=== PATIENT | female | born 1995 | race Caucasian/White ===

== ENCOUNTER 2020-06-08 08:25 | Emergency (ER) | payer OTHER ==
[2020-06-08 08:46] VITALS: BP 131/83
[2020-06-08] MEDS ORDERED: IBUPROFEN 600 MG TABLET PO STA (08:46)
[2020-06-08] MEDS ORDERED: ONDANSETRON ODT 4 MG TABLET TL STA (08:46)
[2020-06-08 08:58] LABS: BILIRUBIN,URINE NEGATIVE (NEGATIVE); GLUCOSE, URINE (UA) NEGATIVE (NEGATIVE); KETONES,URINE (UA) NEGATIVE (NEGATIVE); LEUKOCYTE ESTERASE, URINE LARGE (NEGATIVE); NITRITE,URINE NEGATIVE (NEGATIVE); OCCULT BLOOD,URINE TRACE-INTA (NEGATIVE); PROTEIN,URINE NEGATIVE (NEGATIVE); UROBILINOGEN,URINE 0.2 (NORMAL) E.U./dL (NORMAL)
[2020-06-08 09:00] LABS: BASOPHILS % (AUTO) 0.3 %; EOSINOPHILS % (AUTO) 0.3 %; HGB - HEMOGLOBIN 12.7 g/dL (12.0-16.0); LYMPHOCYTES # (AUTO) 1.8 10^3/uL (1.5-3.5); LYMPHOCYTES % (AUTO) 28.1 %; MEAN CORPUSCULAR HEMOGLOBIN 30.3 pg (27.0-31.0); MEAN CORPUSCULAR HGB CONC 34.3 g/dL (32.0-36.0); MEAN CORPUSCULAR VOLUME 88.3 fL (81.0-99.0); MONOCYTES # (AUTO) 0.4 10^3/uL (0.0-1.0); MONOCYTES % (AUTO) 6.6 %; NEUTROPHILS % (AUTO) 64.5 %; PLT - PLATELET COUNT 320 10^3/uL (130-450); RED BLOOD COUNT 4.19 10^6/uL (4.20-5.40); RED CELL DISTRIBUTION WIDTH 12.4 % (12.0-15.0); WHITE BLOOD COUNT 6.2 x10^3/uL (4.8-10.8)
[2020-06-08 09:02] LABS: CLARITY,URINE HAZY (CLEAR); HCG UR QUAL NEGATIVE
[2020-06-08 09:08] LABS: CALCIUM 9.7 mg/dL (8.5-10.3); CREATININE 0.6 mg/dL (0.4-1.0); POTASSIUM 3.6 mmol/L (3.5-5.0)
[2020-06-08 09:15] LABS: BACTERIA,URINE Few /HPF (None Seen); RBC,URINE 0-5 /HPF (0-5); SQUAMOUS EPITHELIAL CELL,UR FEW Squamous (<= Few); WBC,URINE >25 /HPF (0-5)
[2020-06-08] MEDS ORDERED: PHENAZOPYRIDINE 100 MG TABLET PO STA (09:31)
[2020-06-08] MEDS ORDERED: SULFAMETH/TRIMETH DS 800/160 MG TABLET PO STA (09:31)
--- NOTE | 2020-06-08 09:37 | ED Physician Documentation ---
PD HPI FEMALE - Stated complaint Stated Complaint: FEMALE - Chief complaint Chief Complaint: Abd Pain - History obtained from History obtained from: Patient - History of Present Illness Timing - onset: How many days ago (2) Timing - duration: Days (2) Timing - details: Gradual onset, Still present Associated symptoms: Dysuria, Urinary frequency. No: Fever, Vaginal bleeding, Vaginal discharge, Genital sore/lesion Contributing factors: Sexually active, Other (nexplanon). No: Exposed to STD Similar symptoms before: Diagnosis (UTIs in the past.) Recently seen: Clinic (seen about 9 days ago for uti symptoms and Rx Macrobid for 5 days. finished thos few days ago and having symptoms back again. Denies vaginal discharge now, did have some the week ago.) Review of Systems Constitutional: denies: Fever, Chills Nose: denies: Rhinorrhea / runny nose, Congestion Throat: denies: Sore throat Respiratory: denies: Cough GI: reports: Abdominal Pain (lower abd cramping intermittent. and with dysuria with urination. Denies tenderness/rash/pain with wiping/external.), Nausea, Diarrhea (loose stools the past 2 days, not diarrhea per se.). denies: Vomiting : reports: Dysuria, Frequency, Discharge (states mild discharge a week ago, not currently.). 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 - Past Surgical History Past Surgical History: No - Present Medications Home Medications: Ambulatory Orders Medication Instructions Recorded Confirmed Ibuprofen [Motrin] 600 mg PO TID PRN #20 tab 06/08/20 Ondansetron Odt [Zofran] 4 mg TL Q6H PRN #10 tablet 06/08/20 Phenazopyridine HCl [Pyridium] 100 mg PO TID PRN #15 tablet 06/08/20 Sulfamethox/Trimeth 800/160 1 each PO BID #14 tablet 06/08/20 [Bactrim Ds 800/160] - Allergies Allergies/Adverse Reactions: Allergies Allergy/AdvReac Type Severity Reaction Status Date / Time No Known Drug Allergies Allergy Verified 06/08/20 08:46 - Social History Does the pt smoke?: No Smoking Status: Never smoker Does the pt drink ETOH?: No Does the pt have substance abuse?: No - Immunizations Immunizations are current?: Yes - POLST Patient has POLST: No PD ED PE NORMAL - Vitals Vital signs reviewed: Yes - General General: Alert and oriented X 3, No acute distress, Well developed/nourished - Cardiac Cardiac: RRR, No murmur - Respiratory Respiratory: Clear bilaterally - Abdomen Abdomen: Normal bowel sounds, Soft, Non distended, No organomegaly, Other (mild tender suprapubic area.) - Female Female : Deferred (will have her do self-swab for BV. ) - Back Back: No CVA TTP - Derm Derm: Normal color, No rash Results - Vitals Vitals: Vital Signs - 24 hr 06/08/20 06/08/20 08:34 08:56 Temperature 36.7 C Heart Rate 94 85 Respiratory 16 16 Rate Blood Pressure 131/83 H 131/83 H O2 Saturation 99 100 Oxygen O2 Source Room air - Labs Labs: Laboratory Tests 06/08/20 06/08/20 06/08/20 08:51 08:55 08:55 WBC 6.2 RBC 4.19 L Hgb 12.7 Hct 37.0 MCV 88.3 MCH 30.3 MCHC 34.3 RDW 12.4 Plt Count 320 MPV 10.0 Neut # (Auto) 4.0 Lymph # (Auto) 1.8 Dawes # (Auto) 0.4 Eos # (Auto) 0.0 Baso # (Auto) 0.0 Absolute Nucleated RBC 0.00 Nucleated RBC % 0.0 Sodium 141 Potassium 3.6 Chloride 104 Carbon Dioxide 28 Anion Gap 9.0 BUN 10 Creatinine 0.6 Estimated GFR (MDRD) 125 Glucose 98 Calcium 9.7 Urine Color LIGHT YELLOW Urine Clarity HAZY Urine pH 7.0 Ur Specific [place] <=1.005 Urine Protein NEGATIVE Urine Glucose (UA) NEGATIVE Urine Ketones NEGATIVE Urine Occult Blood TRACE-INTA Urine Nitrite NEGATIVE Urine Bilirubin NEGATIVE Urine Urobilinogen 0.2 (NORMAL) Ur Leukocyte Esterase LARGE H Urine RBC 0-5 Urine WBC >25 H Ur Squamous Epith Cells FEW Squamous Urine Bacteria Few Ur Microscopic Review INDICATED Urine Culture Comments INDICATED Urine HCG, Qual NEGATIVE PD MEDICAL DECISION MAKING - ED course Complexity details: considered differential (UA seems positive for UTI. She had taken Macrobid for this with incomplete clearing. Will go with other med. ), d/w patient Departure - Departure Disposition: 01 Home, Self Care Clinical Impression: Dysuria, Recurrent UTI (urinary tract infection) Condition: Stable Record reviewed to determine appropriate education?: Yes Instructions: ED UTI Cystitis Female Follow-Up: [facility] [Provider Group] Prescriptions: Sulfamethox/Trimeth 800/160 [Bactrim Ds 800/160] 1 each PO BID #14 tablet Ibuprofen [Motrin] 600 mg PO TID PRN #20 tab PRN Reason: Pain Phenazopyridine HCl [Pyridium] 100 mg PO TID PRN #15 tablet PRN Reason: Abdominal Pain Ondansetron Odt [Zofran] 4 mg TL Q6H PRN #10 tablet PRN Reason: Nausea / Vomiting Comments: Rest today off work. Stay well-hydrated. Use Bactrim antibiotic twice daily for a week. For symptoms you can use phenazopyridine to help with urinary discomfort. Ondansetron if needed for nausea. Add some ibuprofen 2-3 times a day for discomfort as well. Take it with food. I would anticipate improvement over the next day or 2 and resolution by a 3 to 4 days. Recheck if not improved in that timeframe or worsening symptoms. Your urine culture and vaginal culture will result in the next 1-2 days and we will call you if we need to modify or change medications based on those. Forms: Activity restrictions Discharge Date/Time: 06/08/20 09:45
[2020-06-08 11:34] LABS: BACTERIAL VAGINOSIS DNA NEGATIVE (NEGATIVE); CANDIDA GLABRATA DNA NEGATIVE (NEGATIVE); CANDIDA GROUP DNA NEGATIVE (NEGATIVE); CANDIDA KRUSEI DNA NEGATIVE (NEGATIVE); TRICHOMONAS VAGINALIS DNA NEGATIVE (NEGATIVE)
== END 2020-06-08 09:45 | disposition home or self-care (01) ==
LOC: ED 08:25
DX: N39.0 Urinary tract infection, site not specified (principal)
CPT/HCPCS: 36415; 80048; 81001; 81025; 85025; 87086; 87481; 87661; 87801; 99284; A9270; Q0162; 81003

== ENCOUNTER 2020-10-12 13:25 | Emergency (ER) | payer OTHER ==
[2020-10-12 13:57] LABS: BILIRUBIN,URINE NEGATIVE (NEGATIVE); GLUCOSE, URINE (UA) 100 mg/dL (NEGATIVE); KETONES,URINE (UA) NEGATIVE (NEGATIVE); OCCULT BLOOD,URINE NEGATIVE (NEGATIVE); PROTEIN,URINE TRACE mg/dL (NEGATIVE); UROBILINOGEN,URINE 1 (NORMAL) E.U./dL (NORMAL)
[2020-10-12 14:05] LABS: CLARITY,URINE CLEAR (CLEAR); HCG UR QUAL NEGATIVE
[2020-10-12 14:13] LABS: BACTERIA,URINE Rare /HPF (None Seen); RBC,URINE None Seen /HPF (0-5); SQUAMOUS EPITHELIAL CELL,UR FEW Squamous (<= Few)
[2020-10-12] MEDS ORDERED: SULFAMETH/TRIMETH DS 800/160 MG TABLET PO STA (14:47)
--- NOTE | 2020-10-12 14:54 | ED Physician Documentation ---
History of Present Illness - Stated complaint Stated Complaint: FEMALE - Chief complaint Chief Complaint: UTI - History obtained from History obtained from: Patient - Additonal information Additional information: Patient comes emergency department chief complaint of dysuria that started today. She states she has had UTIs a number of times in the past and feels similar. She denies any nausea or vomiting. She had a feeling of chills but no measured fever. No other complaints at this time. No vaginal symptoms. No back pain that is new. Review of Systems Ten Systems: 10 systems reviewed and negative Constitutional: reports: Reviewed and negative Eyes: reports: Reviewed and negative Ears: reports: Reviewed and negative Nose: reports: Reviewed and negative Throat: reports: Reviewed and negative Cardiac: reports: Reviewed and negative Respiratory: reports: Reviewed and negative GI: reports: Abdominal Pain : reports: Dysuria Skin: reports: Reviewed and negative Musculoskeletal: reports: Reviewed and negative Neurologic: reports: Reviewed and negative Psychiatric: reports: Reviewed and negative Endocrine: reports: Reviewed and negative Immunocompromised: reports: Reviewed and negative PD PAST MEDICAL HISTORY - Past Medical History Past Medical History: Yes Cardiovascular: None Respiratory: None Neuro: None Endocrine/Autoimmune: None GI: None 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 : Chronic bladder infection HEENT: None Psych: None Musculoskeletal: None Derm: None - Past Surgical History Past Surgical History: No - Present Medications Home Medications: Ambulatory Orders Medication Instructions Recorded Confirmed Phenazopyridine HCl [Pyridium] 200 mg PO TID PRN #6 tablet 10/12/20 Sulfamethox/Trimeth 800/160 1 each PO BID #14 tablet 10/12/20 [Bactrim Ds 800/160] - Allergies Allergies/Adverse Reactions: Allergies Allergy/AdvReac Type Severity Reaction Status Date / Time No Known Drug Allergies Allergy Verified 10/12/20 13:37 - Social History Does the pt smoke?: No Smoking Status: Former smoker Does the pt drink ETOH?: No Does the pt have substance abuse?: No - Immunizations Immunizations are current?: Yes - POLST Patient has POLST: No PD ED PE NORMAL - Vitals Vital signs reviewed: Yes - General General: Alert and oriented X 3, No acute distress, Well developed/nourished - HEENT HEENT: Atraumatic, PERRL, EOMI, Moist mucous membranes - Neck Neck: Supple, no meningeal sign - Cardiac Cardiac: RRR, No murmur, Strong equal pulses - Respiratory Respiratory: No respiratory distress, Clear bilaterally - Abdomen Abdomen: Soft, Non distended, Other (Moderate diffuse tenderness across low abdomen, no rebound or guarding.) - Back Back: No CVA TTP - Derm Derm: Normal color, Warm and dry, No rash - Extremities Extremities: No deformity, No edema - Neuro Neuro: Alert and oriented X 3, supervisory aide 2-12 intact, Normal speech - Psych Psych: Normal mood, Normal affect Results - Vitals Vitals: Vital Signs - 24 hr 10/12/20 13:37 Temperature 36.4 C L Heart Rate 78 Respiratory 16 Rate Blood Pressure 108/64 O2 Saturation 98 Oxygen O2 Source Room air - Labs Labs: Laboratory Tests 10/12/20 13:45 Urine Color ORANGE Urine Clarity CLEAR Urine pH 6.0 Ur Specific [place] <=1.005 Urine Protein TRACE Urine Glucose (UA) 100 H Urine Ketones NEGATIVE Urine Occult Blood NEGATIVE Urine Nitrite Urine Bilirubin NEGATIVE Urine Urobilinogen 1 (NORMAL) Ur Leukocyte Esterase Urine RBC None Seen Urine WBC 11-25 H Ur Squamous Epith Cells FEW Squamous Urine Bacteria Rare Ur Microscopic Review INDICATED Urine Culture Comments NOT INDICATED Urine HCG, Qual NEGATIVE PD MEDICAL DECISION MAKING - ED course Complexity details: reviewed results, re-evaluated patient, considered differential, d/w patient ED course: Urinalysis was positive. Patient was treated with Bactrim here in the emergency department and given a prescription for the same. We have discussed home management of symptoms, and will use will indications for return. Departure - Departure Disposition: 01 Home, Self Care Clinical Impression: Urinary tract infection Qualifiers: Urinary tract infection type: acute cystitis Hematuria presence: without hematuria Qualified Code(s): N30.00 - Acute cystitis without hematuria Condition: Stable Instructions: ED UTI Cystitis Female Prescriptions: Sulfamethox/Trimeth 800/160 [Bactrim Ds 800/160] 1 each PO BID #14 tablet Phenazopyridine HCl [Pyridium] 200 mg PO TID PRN #6 tablet PRN Reason: dysuria
[2020-10-12 15:14] VITALS: BP 110/62
== END 2020-10-12 15:13 | disposition home or self-care (01) ==
LOC: ED 13:25
DX: N30.00 Acute cystitis without hematuria (principal); Z87.891 Personal history of nicotine dependence
CPT/HCPCS: 81001; 81025; 99283; 99284; A9270; 81003; 87086

== ENCOUNTER 2023-05-14 08:00 | Outpatient (CLI) | payer OTHER ==
[2023-05-14 16:21] LABS: BILIRUBIN,URINE NEGATIVE (NEGATIVE); GLUCOSE, URINE (UA) NEGATIVE (NEGATIVE); KETONES,URINE (UA) NEGATIVE (NEGATIVE); LEUKOCYTE ESTERASE, URINE NEGATIVE (NEGATIVE); NITRITE,URINE NEGATIVE (NEGATIVE); OCCULT BLOOD,URINE NEGATIVE (NEGATIVE); PH,URINE 6.5 PH (5.0-7.5); PROTEIN,URINE NEGATIVE (NEGATIVE); UROBILINOGEN,URINE 0.2 (NORMAL) E.U./dL (NORMAL)
[2023-05-14 16:26] LABS: CLARITY,URINE CLEAR (CLEAR)
[2023-05-14 16:37] LABS: BACTERIA,URINE None Seen /HPF (None Seen); RBC,URINE 0-5 /HPF (0-5); SQUAMOUS EPITHELIAL CELL,UR RARE Squamous (<= Few); WBC,URINE 0-3 /HPF (0-5)
== END 2023-05-14 23:59 | disposition home or self-care (01) ==
LOC: LAB.WC 08:00
PROVIDERS: ATTEND Nurse Practitioner
DX: Z34.00 Encounter for supervision of normal first pregnancy, unspecified trimester (principal)
CPT/HCPCS: 81001; 87086

== ENCOUNTER 2023-05-23 19:37 | Outpatient (CLI) | payer OTHER ==
--- NOTE | 2023-05-24 22:08 | Ultrasound Report ---
PROCEDURE: OB 1st Trimester w/TV INDICATIONS: POSITIVE TEST OUTSIDE/PRIOR DATING DATA: Last menstrual period (LMP): 03/31/2023. LMP-based estimated date of delivery (GERMAN): 01/05/2024. First dating scan (date and location): 05/23/2023. Estimated date of delivery (GERMAN) from first dating scan: 01/13/2024. TECHNIQUE: Real-time scanning was performed of the fetus and maternal pelvic organs, with image documentation. Endovaginal scanning was also performed to better visualize the fetus and maternal ovaries. COMPARISON: None. FINDINGS: Intrauterine gestational sac present. Embryo: [place]-rump length measuring 0.59 cm, gestational age 6 weeks 3 days. Heart rate: 116 bpm. Other: No perigestational fluid collection. A yolk sac is seen. Measurement variability in dating: +/- 4 weeks by LMP, +/- 7 days by mean sac diameter (use before 6 weeks gestation if crown-rump length not able to be measured), +/- 5 days by crown-rump length (6-12 weeks gestation). Maternal organs: Ovaries appear within normal limits. Right corpus luteum. IMPRESSION: 1. [place] living intrauterine at 6 weeks 3 days based on today's crown-rump length. 2. No perigestational hemorrhage. Reviewed by: Anthony Herndon MD on 05/24/2023 10:07 PM PDT Approved by: Anthony Herndon MD on 05/24/2023 10:07 PM PDT Station ID: [id number]
== END 2023-05-23 19:38 | disposition home or self-care (01) ==
LOC: DI 19:37
PROVIDERS: ATTEND Nurse Practitioner
DX: Z34.01 Encounter for supervision of normal first pregnancy, first trimester (principal)

== ENCOUNTER 2023-06-06 12:48 | Outpatient (CLI) | payer OTHER ==
[2023-06-06 17:49] LABS: BASOPHILS % (AUTO) 0.2 %; EOSINOPHILS # (AUTO) 0.1 10^3/uL (0.0-0.7); EOSINOPHILS % (AUTO) 0.8 %; HCT - HEMATOCRIT 34.4 % (37.0-47.0); HGB - HEMOGLOBIN 11.3 g/dL (12.0-16.0); LYMPHOCYTES # (AUTO) 2.5 10^3/uL (1.5-3.5); LYMPHOCYTES % (AUTO) 26.4 %; MEAN CORPUSCULAR HEMOGLOBIN 29.4 pg (27.0-31.0); MEAN CORPUSCULAR HGB CONC 32.8 g/dL (32.0-36.0); MEAN CORPUSCULAR VOLUME 89.4 fL (81.0-99.0); MEAN PLATELET VOLUME 10.6 fL (7.9-10.8); MONOCYTES # (AUTO) 0.6 10^3/uL (0.0-1.0); MONOCYTES % (AUTO) 6.7 %; NEUTROPHILS # (AUTO) 6.1 10^3/uL (1.5-6.6); NEUTROPHILS % (AUTO) 65.6 %; PLT - PLATELET COUNT 331 10^3/uL (130-450); RED BLOOD COUNT 3.85 10^6/uL (4.20-5.40); RED CELL DISTRIBUTION WIDTH 12.4 % (12.0-15.0); WHITE BLOOD COUNT 9.3 x10^3/uL (4.8-10.8)
[2023-06-08 04:09] LABS: HIV SCREEN 4TH GENERATION Non Reactive (Non Reactive)
[2023-06-08 05:12] LABS: RPR Non Reactive (Non Reactive)
[2023-06-08 07:09] LABS: HBsAG SCREEN Negative (Negative)
[2023-06-08 10:08] LABS: VARICELLA-ZOSTER AB IGG 556 index (Immune >165)
[2023-06-10 23:08] LABS: HCV AB Non Reactive (Non Reactive)
== END 2023-06-06 12:49 | disposition home or self-care (01) ==
LOC: LAB.N 12:48
PROVIDERS: ATTEND Obstetrics & Gynecology
DX: Z34.00 Encounter for supervision of normal first pregnancy, unspecified trimester (principal); Z36.89 Encounter for other specified antenatal screening
CPT/HCPCS: 36415; 85025; 86592; 86762; 86787; 86803; 86850; 86900; 86901; 87340; 87389

== ENCOUNTER 2023-07-15 14:01 | Outpatient (CLI) | payer OTHER | END 2023-07-15 14:02 | disposition home or self-care (01) | LOC: LAB 14:01 | PROVIDERS: ATTEND Obstetrics & Gynecology | DX: Z34.00 Encounter for supervision of normal first pregnancy, unspecified trimester (principal); Z36.0 Encounter for antenatal screening for chromosomal anomalies ==

== ENCOUNTER 2023-08-04 12:15 | Emergency (ER) | payer OTHER ==
[2023-08-04] MEDS: oxyCODONE 5 MG TABLET PO STA (12:36)
[2023-08-04] MEDS: AMOX/CLAV 875 MG/125 MG TABLET PO STA (12:37)
[2023-08-04] MEDS: LIDOCAINE 1%-EPI 1:100000 20 ML MDV SUBQ STA (12:37)
--- NOTE | 2023-08-04 12:39 | ED Physician Documentation ---
History of Present Illness - Stated complaint Stated Complaint: DOG BITE/16WKS+ - Chief complaint Chief Complaint: Trauma Ext - History obtained from History obtained from: Patient - History of Present Illness Timing: Today Pain level max: 6 Pain level now: 6 - Additonal information Additional information: 27-year-old female presents the emergency department stating that she was a bit by a dog today. Has lacerations to the bilateral forearms. Tetanus shot up-to-date. She states that she is approximately 16 weeks . She states that the dog was a neighbors dog. She states the attack was unprovoked. 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 : Chronic bladder infection HEENT: None Psych: None Musculoskeletal: None Derm: None - Past Surgical History Past Surgical History: No - Present Medications Home Medications: Ambulatory Orders Medication Instructions Recorded Confirmed Amox/Clav 875/125 [Augmentin] 1 tab PO Q12H #20 tablet 08/04/23 oxyCODONE [Roxicodone] 5 - 10 mg PO Q6H PRN #14 tablet 08/04/23 MDD 6 - Allergies Allergies/Adverse Reactions: Allergies Allergy/AdvReac Type Severity Reaction Status Date / Time No Known Drug Allergies Allergy Verified 08/04/23 12:32 - Social History Does the pt smoke?: No Smoking Status: Never smoker Does the pt drink ETOH?: No Does the pt have substance abuse?: No - Immunizations Immunizations are current?: Yes - POLST Patient has POLST: No PD ED PE NORMAL - Vitals Vital signs reviewed: Yes - General General: Alert and oriented X 3, No acute distress - HEENT HEENT: Atraumatic - Neck Neck: Supple, no meningeal sign - Cardiac Cardiac: RRR - Respiratory Respiratory: No respiratory distress, Clear bilaterally - Abdomen Abdomen: Soft, Non tender, Non distended - Derm Derm: Warm and dry - Extremities Extremities: Other - Neuro Neuro: Alert and oriented X 3 - Psych Psych: Normal mood, Normal affect - Free text exam Free text exam: Multiple lacerations to the bilateral forearms, there is a laceration just proximal to the distal right ulna on the dorsum of the arm that has a complete tendon laceration. Patient is neurovascularly intact, but has difficulty holding her right wrist in full extension and difficulty fully extending her right fifth digit. She has multiple smaller lacerations to the left forearm. Has abrasions to the left hand. Results - Vitals Vitals: Vital Signs - 24 hr 08/04/23 12:26 Temperature 35.9 C L Heart Rate 94 Respiratory 18 Rate Blood Pressure 113/69 O2 Saturation 100 Oxygen O2 Source Room air - Rads (name of study) R forearm xray Relevant Findings:: Final report received, See rad report L forearm xray Relevant Findings:: Final report received, See rad report Procedures - Laceration (location) R forearm proximal Length in cm: 4 Wound type: Linear, Into subcut fat, Clean Neurovascular status: Sensory intact, Motor intact, Vascular intact Anesthesia: Lidocaine 1% with epi Wound preparation: Irrigated copiously NS, Wound explored, To the base Skin layer closure: Nylon, Interrupted, Size #-0 - enter number (4) Other: Patient tolerated well, No complications, Neurovascular intact, Tetanus UTD R forearm proximal 2 Length in cm: 2 Wound type: Linear, Into subcut fat, Clean Neurovascular status: Sensory intact, Motor intact, Vascular intact Anesthesia: Lidocaine 1% Wound preparation: Irrigated copiously NS Skin layer closure: Nylon, Interrupted, Size #-0 - enter number (4) Other: Patient tolerated well, No complications, Neurovascular intact, Tetanus UTD R forearm proximal 3 Length in cm: 2 Wound type: Linear, Into subcut fat, Clean Neurovascular status: Sensory intact, Motor intact, Vascular intact Anesthesia: Lidocaine 1% with epi Wound preparation: Irrigated copiously NS, Wound explored, To the base Skin layer closure: Nylon, Interrupted, Size #-0 - enter number (4) Other: Patient tolerated well, No complications, Neurovascular intact, Tetanus UTD L forearm proximal 1 Length in cm: 2 Wound type: Linear, Into subcut fat, Clean Neurovascular status: Sensory intact, Motor intact, Vascular intact Anesthesia: Lidocaine 1% with epi Wound preparation: Irrigated copiously NS, Wound explored, To the base Skin layer closure: Nylon, Interrupted, Size #-0 - enter number (4) Other: Patient tolerated well, No complications, Neurovascular intact, Dressing applied, Tetanus UTD L forearm prox 2 Length in cm: 2 Wound type: Linear, Into subcut fat, Clean Neurovascular status: Sensory intact, Motor intact, Vascular intact Wound preparation: Irrigated copiously NS Skin layer closure: Nylon, Interrupted, Size #-0 - enter number (4) Other: Patient tolerated well, No complications, Neurovascular intact, Dressing applied, Tetanus UTD R forearm proximal 4 Length in cm: 3 Wound type: Linear, Into subcut fat, Clean Neurovascular status: Sensory intact, Motor intact, Vascular intact Anesthesia: Lidocaine 1% with epi Wound preparation: Irrigated copiously NS, Wound explored, To the base Skin layer closure: Nylon, Interrupted, Size #-0 - enter number (4) Other: Patient tolerated well, No complications, Neurovascular intact, Dressing applied, Tetanus UTD PD Medical Decision Making - ED course Complexity details: reviewed results, re-evaluated patient, considered differential, d/w patient, d/w solution consultant ED course: Lacerations were repaired in the emergency department. Tolerated well. On the laceration at the dorsum of the right forearm, proximal to the distal ulna there was an extensor tendon complete laceration. I consulted orthopedics, Dr. Acosta, who came and saw the patient. He attempted to find the other end of the tendon but was unsuccessful in doing so. Therefore he closed the skin and recommended outpatient follow-up with a hand surgeon. Patient was placed into a fiberglass splint to immobilize the area. Her tetanus shot is up-to-date. Will place on Augmentin for infection. I spoke with [facility] who will pass the patient's information to the triage nurse for a call on Saturday. The information was also given to the patient. Warnings of infection and instructions on wound care given at bedside. Also counseled on how to minimize scarring. Patient counseled regarding signs and symptoms for which I believe and urgent re-evaluation would be necessary. Patient with good understanding of and agreement to plan and is comfortable going home at this time This document was made in part using voice recognition software. While efforts are made to proofread this document, sound alike and grammatical errors may occur. Departure - Departure Disposition: 01 Home, Self Care Clinical Impression: Arm laceration involving tendon Dog bite Qualifiers: Encounter type: initial encounter Qualified Code(s): W54.0XXA - Bitten by dog, initial encounter Arm laceration Qualifiers: Encounter type: initial encounter Laterality: unspecified laterality Qualified Code(s): S41.119A - Laceration without foreign body of unspecified upper arm, initial encounter Condition: Good Instructions: ED Bite Dog, ED Laceration Ext Sutr Stap Tape, ED Laceration Tendon Follow-Up: OLIVIA CALDERON [Physician No Access] - Prescriptions: Amox/Clav 875/125 [Augmentin] 1 tab PO Q12H #20 tablet oxyCODONE [Roxicodone] 5 - 10 mg PO Q6H PRN #14 tablet MDD 6 PRN Reason: pain Comments: Your prescriptions were sent to [facility] in [place]. Please take all antibiotics until gone. Please monitor the wounds for any signs of infection including redness, swelling or drainage from the wound. As we discussed you do have an extensor tendon laceration that will need repair. I spoke with orthopedics at [facility] in [place], they have your name and phone number and should call you on Saturday for an appointment, if you do not hear from them by Saturday afternoon, please call their office for a follow-up appointment. The follow-up appointment should be this week. Your other sutures should be removed in approximately 10 days, this can be done at the [employer] [facility]. I am prescribing a short course of narcotic pain medication for you. These are potentially dangerous and addictive medications that should be used carefully. These medications may constipate you. Take an xwyf-[id number]-[id number] stool softener (docusate) twice daily with plenty of water while taking these medications. If you go 24 hours without a bowel movement, take isty-clc-rbjperm miralax, per package instructions. Do not drink or drive while taking these medications. If you received narcotic or sedating medications while in the emergency department, do not drive for 24 hours. Store this medication in a safe, secure place and out of reach of children. It is a violation of federal law to give or sell this medication to another person or to use in a manner other than prescribed. The ED will not refill narcotic prescriptions, including prescriptions lost or stolen. To dispose of unwanted medications: 1. [facility] at [address] in [place] has a medication drop box. They accept prescription medications (in pil l form) Saturday through Saturday 9:00 a.m. to 5:00 p.m. 2. The [facility] accepts prescription medications (in pill form only) for disposal year round. Call for more information. 3. Contact the [facility] for the next [facility] sponsored prescription drug collection event. , [phone], or [phone]; Forms: PCP List, Activity restrictions
--- NOTE | 2023-08-04 13:45 | XRAY Report ---
PROCEDURE: Forearm RT INDICATIONS: dog bite vs arm TECHNIQUE: 3 views of the forearm were acquired. COMPARISON: None. FINDINGS: Bones: No fractures or dislocations. No suspicious bony lesions. Soft tissues: No suspicious soft tissue calcifications or masses. Scant subcutaneous gas. No radiopa que foreign body. IMPRESSION: No acute bony abnormality. Scant subcutaneous gas from puncture. Reviewed by: Anthony Herndon MD on 08/04/2023 1:43 PM PDT Approved by: Anthony Herndon MD on 08/04/2023 1:43 PM PDT Station ID: [id number]
--- NOTE | 2023-08-04 13:48 | XRAY Report ---
PROCEDURE: Forearm LT INDICATIONS: dog bite TECHNIQUE: 2 views of the forearm were acquired. COMPARISON: Same day contralateral right forearm radiographs. FINDINGS: Bones: No fractures or dislocations. No suspicious bony lesions. Soft tissues: No suspicious soft tissue calcifications or masses. Suspected puncture wound. No radi opaque vertebral body. IMPRESSION: No acute bony abnormality. Reviewed by: Anthony Herndon MD on 08/04/2023 1:47 PM PDT Approved by: Anthony Herndon MD on 08/04/2023 1:47 PM PDT Station ID: [id number]
--- NOTE | 2023-08-04 14:27 | CONSULTATION NOTE ---
Referring Provider Name of Referring Provider:: DR. Daniel Consult Date: 08/04/23 History of Present Illness - History of Present Illness HPI Comment/Other: Sue Reagan is a 27-year-old female right-handed who apparently was involved in a altercation with a dog and [place]. She sustained multiple dog bite wounds in addition to a extensor tendon laceration in the distal right forearm. 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: reports: None : reports: Chronic bladder infection HEENT: reports: None Psych: reports: None Musculoskeletal: reports: None Derm: reports: None MRSA Hx?: No - POLST Patient has POLST: No Meds/Allgy - Home Medications Home Medications: Ambulatory Orders Medication Instructions Recorded Confirmed Amox/Clav 875/125 [Augmentin] 1 tab PO Q12H #20 tablet 08/04/23 oxyCODONE [Roxicodone] 5 - 10 mg PO Q6H PRN #14 tablet 08/04/23 MDD 6 - Allergies Allergies/Adverse Reactions: Allergies Allergy/AdvReac Type Severity Reaction Status Date / Time No Known Drug Allergies Allergy Verified 08/04/23 12:32 Exam - Vital Signs Vital Signs: Vital Signs x48h Temp Pulse Resp BP Pulse Ox 08/04/23 12:26 35.9 C L 94 18 113/69 100 - Physical Exam Comments/Other: Examination: Right distal forearm was inspected and showed a 1 and half centimeter oblique laceration with a balled up portion of extensor tendon visible in the wound. Patient was then evaluated and unable to extend and hold her wrist. Neurovascularly appeared to be intact distally. X-rays: No acute fractures Conclusion/Plan - Problem List (1) Arm laceration involving tendon Conclusion/Plan: Using local anesthesia with we extended the patient's wound in a zigzag fashion proximally. Extensive search of her wound did not reveal the proximal end of her tendon laceration. Patient was beginning to experience discomfort with our exploration. We elected to abort any further exploration at this point. Her forearm wound was then loosely closed using several stitches of 4 oh and Ethibond suture. Wound was then dressed and the wrist splinted. Plan: Patient will be given the antibiotics to cover for potential wound contamination or infection. Patient will have an arrangement made to for consultation with a hand surgeon for repeat exploration and repair of her extensor tendon laceration.
[2023-08-04 15:28] VITALS: BP 114/74; O2SAT 99
== END 2023-08-04 15:26 | disposition home or self-care (01) ==
LOC: ED 12:15
DX: O99.891 Other specified diseases and conditions complicating pregnancy (principal); S51.812A Laceration without foreign body of left forearm, initial encounter; S51.811A Laceration without foreign body of right forearm, initial encounter; S60.512A Abrasion of left hand, initial encounter; S56.521A Laceration of other extensor muscle, fascia and tendon at forearm level, right arm, initial encounter; W54.0XXA Bitten by dog, initial encounter; Y92.007 Garden or yard of unspecified non-institutional (private) residence as the place of occurrence of the external cause; Z3A.16 16 weeks gestation of pregnancy
CPT/HCPCS: 12005; 29125; 73090; 99284; A9270

== ENCOUNTER 2023-09-19 19:09 | Outpatient (CLI) | payer OTHER ==
--- NOTE | 2023-09-20 12:21 | Ultrasound Report ---
PROCEDURE: OB Anatomy Scan INDICATIONS: SUPERVISION OF OUTSIDE/PRIOR DATING DATA: Last menstrual period (LMP): 03/31/2023. LMP-based estimated date of delivery (GERMAN): 01/05/2024. First dating scan (date and location): 05/23/2023. Estimated date of delivery (GERMAN) from first dating scan: 01/13/2024. TECHNIQUE: Real-time scanning was performed of the fetus, with image documentation and biometric measurements. COMPARISON: 05/23/2023 FINDINGS: General: A single living intrauterine gestation is present. Presentation: Breech Placenta: Placental position is posterior, without previa. Amniotic fluid index: 17.2 cm, within normal limits for gestational age. heart rate: 131 beats per minute. Maternal cervical canal: 4.2 cm long; normal length is 2.5 cm or more. biometrics: Biparietal diameter: 5.76, 23 weeks and 4 days, 52.5% Head circumference: 22.1 cm, 24 weeks and 1 day, 61.7% Abdominal circumference: 18.3 cm, 23 weeks and 1 day, 31.3% Femur length: 4.09 cm, 23 weeks and 2 days, 32.2% Estimated gestational age from initial scan: 23 weeks and 3 days Composite gestational age from present scan: 23 weeks and 6 days Estimated weight and percentile: 580.3 g, 35.2% Measurement variability in biometric dating: +/- 10 days from 12-20 weeks gestation, +/- 2 weeks from 20-30 weeks gestation, +/- 3 weeks at 30 weeks gestation or later. Anatomic survey: Neuro: Ventricles are normal at less than 10 mm. Cisterna magna is normal at 3-11 mm. Cerebellum is normal in size and morphology. Nuchal skin fold: Normal at less than 6 mm between 14 and 20 weeks gestational age. Face: Nose and lips, facial profile are normal. Spine: No evidence for spina bifida. Heart: 4-chambered heart is present, with normal ventricular outflow tracts. Diaphragm: Diaphragm is intact. Stomach: Left-sided stomach is present. Kidneys: No hydronephrosis. Normal is less than 5 mm in 2nd trimester, less than 7 mm in 3rd trimester. Cord: 3 vessel cord has orthotopic insertion. Bladder: Normal in size. Extremities: All 4 extremities are visualized. IMPRESSION: Living intrauterine gestation at 23 weeks and 3 days. EFW is at the 35.2%. Normal KATHY. No significant abnormalities identified on routine anatomic survey. Reviewed by: Wallace Feldman MD on 09/20/2023 12:20 PM PDT Approved by: Wallace Feldman MD on 09/20/2023 12:20 PM PDT Station ID: [id number]
== END 2023-09-19 19:10 | disposition home or self-care (01) ==
LOC: DI 19:09
PROVIDERS: ATTEND Obstetrics & Gynecology
DX: Z34.02 Encounter for supervision of normal first pregnancy, second trimester (principal)

== ENCOUNTER 2023-10-16 13:25 | Outpatient (CLI) | payer OTHER ==
[2023-10-16 14:43] LABS: HCT - HEMATOCRIT 30.5 % (37.0-47.0); HGB - HEMOGLOBIN 10.2 g/dL (12.0-16.0); MEAN CORPUSCULAR HEMOGLOBIN 29.9 pg (27.0-31.0); MEAN CORPUSCULAR HGB CONC 33.4 g/dL (32.0-36.0); MEAN CORPUSCULAR VOLUME 89.4 fL (81.0-99.0); MEAN PLATELET VOLUME 9.8 fL (7.9-10.8); RED BLOOD COUNT 3.41 10^6/uL (4.20-5.40); RED CELL DISTRIBUTION WIDTH 12.8 % (12.0-15.0); WHITE BLOOD COUNT 8.6 x10^3/uL (4.8-10.8)
[2023-10-17 06:10] LABS: RPR Non Reactive (Non Reactive)
== END 2023-10-16 13:26 | disposition home or self-care (01) ==
LOC: LAB 13:25
PROVIDERS: ATTEND Nurse Practitioner
DX: Z34.00 Encounter for supervision of normal first pregnancy, unspecified trimester (principal)
CPT/HCPCS: 36415; 82950; 85027; 86592

== ENCOUNTER 2023-10-21 08:00 | Outpatient (CLI) | payer OTHER ==
[2023-10-21 18:01] LABS: BILIRUBIN,URINE NEGATIVE (NEGATIVE); GLUCOSE, URINE (UA) NEGATIVE (NEGATIVE); KETONES,URINE (UA) NEGATIVE (NEGATIVE); LEUKOCYTE ESTERASE, URINE LARGE (NEGATIVE); NITRITE,URINE NEGATIVE (NEGATIVE); OCCULT BLOOD,URINE NEGATIVE (NEGATIVE); PH,URINE 6.5 PH (5.0-7.5); PROTEIN,URINE NEGATIVE (NEGATIVE); UROBILINOGEN,URINE 0.2 (NORMAL) E.U./dL (NORMAL)
[2023-10-21 18:27] LABS: CLARITY,URINE CLEAR (CLEAR); RBC,URINE 0-5 /HPF (0-5)
[2023-10-21 18:28] LABS: BACTERIA,URINE Moderate /HPF (None Seen); SQUAMOUS EPITHELIAL CELL,UR MANY Squamous (<= Few)
[2023-10-21 22:53] LABS: BACTERIAL VAGINOSIS DNA POSITIVE (NEGATIVE); CANDIDA GLABRATA DNA NEGATIVE (NEGATIVE); CANDIDA GROUP DNA POSITIVE (NEGATIVE); CANDIDA KRUSEI DNA NEGATIVE (NEGATIVE); TRICHOMONAS VAGINALIS DNA NEGATIVE (NEGATIVE)
[2023-10-21 22:56] LABS: CHLAMYDIA TRACHOMATIS DNA NEGATIVE (NEGATIVE); NEISSERIA GONORRHOEAE DNA NEGATIVE (NEGATIVE)
== END 2023-10-21 23:59 | disposition home or self-care (01) ==
LOC: LAB.WC 08:00
PROVIDERS: ATTEND Nurse Practitioner
DX: R35.0 Frequency of micturition (principal); N89.8 Other specified noninflammatory disorders of vagina
CPT/HCPCS: 81001; 81514; 87086; 87491; 87591; 87661

== ENCOUNTER 2024-01-10 11:01 | Inpatient (IN) ==
[2024-01-10] MEDS ORDERED: NIFEdipine 10 MG CAPSULE PO PRN ×2 (12:01→22:41)
[2024-01-10] MEDS ORDERED: hydrALAZINE INJ 20 MG/ML VIAL IVP PRN ×3 (12:01→22:41)
[2024-01-10] MEDS ORDERED: OXYTOCIN/SODIUM CHLORIDE 500 ML IV PRN ×2 (12:01→22:41)
[2024-01-10] MEDS ORDERED: METHYLERGONOVINE 0.2 MG/ML VIAL IM PRN (12:01)
[2024-01-10] MEDS ORDERED: TERBUTALINE 1 MG/ML VIAL SUBQ PRN (12:01)
[2024-01-10] MEDS ORDERED: ACETAMINOPHEN 500 MG TABLET PO PRN (12:01)
[2024-01-10] MEDS ORDERED: OXYTOCIN 10 UNIT/ML VIAL IM PRN (12:01)
[2024-01-10] MEDS ORDERED: SODIUM CHLORIDE FLUSH 0.9% 10 ML SYRINGE IVP PRN (12:01)
[2024-01-10] MEDS ORDERED: miSOPROStoL 200 MCG TABLET PR PRN (12:01)
[2024-01-10] MEDS ORDERED: LABETALOL 20 MG/4 ML SYRINGE IVP PRN ×5 (12:01→22:41)
[2024-01-10] MEDS ORDERED: fentaNYL 100 MCG/2 ML VIAL IVP PRN (12:01)
[2024-01-10] MEDS ORDERED: miSOPROStoL 200 MCG TABLET BC PRN (12:01)
[2024-01-10] MEDS ORDERED: TRANEXAMIC ACID IN NACL 1,000 MG/100 ML BAG IV PRN (12:01)
[2024-01-10 12:13] LABS: RUPTURE OF MEMBRANES PLUS POSITIVE (NEGATIVE)
[2024-01-10] MEDS ORDERED: SODIUM CHLORIDE FLUSH 0.9% 10 ML SYRINGE IVP SCH (13:00)
[2024-01-10 13:28] LABS: BASOPHILS % (AUTO) 0.2 %; EOSINOPHILS % (AUTO) 0.1 %; HCT - HEMATOCRIT 31.8 % (37.0-47.0); HGB - HEMOGLOBIN 10.3 g/dL (12.0-16.0); LYMPHOCYTES # (AUTO) 2.6 10^3/uL (1.5-3.5); LYMPHOCYTES % (AUTO) 14.8 %; MEAN CORPUSCULAR HEMOGLOBIN 26.9 pg (27.0-31.0); MEAN CORPUSCULAR HGB CONC 32.4 g/dL (32.0-36.0); MEAN PLATELET VOLUME 10.3 fL (7.9-10.8); MONOCYTES % (AUTO) 5.6 %; NEUTROPHILS # (AUTO) 13.5 10^3/uL (1.5-6.6); NEUTROPHILS % (AUTO) 78.8 %; PLT - PLATELET COUNT 299 10^3/uL (130-450); RED BLOOD COUNT 3.83 10^6/uL (4.20-5.40); RED CELL DISTRIBUTION WIDTH 13.6 % (12.0-15.0); WHITE BLOOD COUNT 17.2 x10^3/uL (4.8-10.8)
[2024-01-10] MEDS ORDERED: LIDOCAINE 2%-EPI 1:100000 20 ML MDV ONE (13:35)
[2024-01-10] MEDS ORDERED: ROPIVACAINE 0.2% 200 MG/100 ML BAG EP ONE (13:35)
[2024-01-10] MEDS: LACTATED RINGERS 1,000 ML IV PRN (13:42)
--- NOTE | 2024-01-10 14:25 | ANESTHESIA PROCEDURE NOTE ---
Pre-Anesthesia VS, & Labs Diagnosis Surgical Diagnosis:: labor pain Procedure Procedure: labor epidural Vitals Vital Signs: Temp Pulse Resp BP 36.9 C 96 H 14 117/68 01/10/24 11:11 01/10/24 11:11 01/10/24 11:11 01/10/24 11:11 NPO NPO: Other Is Patient ?: Yes Lab Results Current Lab Results: Laboratory Tests 01/10/24 13:21: WBC 17.2 H, RBC 3.83 L, Hgb 10.3 L, Hct 31.8 L, MCV 83.0, MCH 26.9 L, MCHC 32.4, RDW 13.6, Plt Count 299, MPV 10.3, Neut # (Auto) 13.5 H, Lymph # (Auto) 2.6, Smyth # (Auto) 1.0, Eos # (Auto) 0.0, Baso # (Auto) 0.0, Absolute Nucleated RBC 0.00, Nucleated RBC % 0.0 01/10/24 13:21 Meds/Allgy Home Medications Ambulatory Orders Medication Instructions Recorded Confirmed vits 75-iron 28 mg-folic pkg PO 12/03/23 01/08/24 acid 800 mcg-omega3 440 mg oral pack (One Daily ) famotidine 20 mg tablet 20 mg PO BID #60 tabs 12/16/23 01/08/24 Allergies Allergies Allergy/AdvReac Type Severity Reaction Status Date / Time No Known Drug Allergies Allergy Verified 01/08/24 13:04 [facility] Medical History Medical History (Updated 01/09/24 @ 17:31 by Jered Salinas MD) Dog bite of right wrist Back pain Dermatitis (05/02/23) Surgical History Surgical History (Updated 12/03/23 @ 09:28 by Breanna Harmon LPN) S/P tendon repair right wrist dog bite Family History Family History (Updated 12/03/23 @ 09:24 by Breanna Harmon LPN) Father Seizure disorder Sister Diabetes Uncle Diabetes Grandmother Lymphoma Social History Social History (Updated 12/03/23 @ 15:10 by Deya Burton MD) Smoking Status: Never smoker Do you dip or chew tobacco?: No Do you vape?: Yes Living arrangement: At home Marital Status: Single Living Condition: Other Living Situation Details: living with FOB Isaias's exwife, here in [place]. Isaias is at [facility] in [place] with his 4 and 6 yo with the exwife. 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 Level: Independent Do you feel safe in your home environment?: Yes Suffered physical, verbal, emotional, or financial abuse?: No History of Abuse: No ETOH Use: None Substance Use: denies use Are you sexually active?: No Sexual Practice Notes: partner in [place] Occupation: [employer] Retired: No Service: Yes Dates of Service: gets out after delivery. that will be her 5 years. Isaias has 5 yrs left. POLST Patient has POLST: No Anesthesia Exam (Expanded) Exam General: Alert, Oriented x3 and Cooperative Dental: WNL Mouth Openin Fingerbreadth Neck Mobility: Normal Mallampati classification: II Thyromental Distance: 4-6 cm Respiratory: Lungs clear Cardiovascular: Regular rate Plan Plan Anesthesia Type: Epidural Consent for Procedure(s) Verified and Reviewed: Yes Code Status: Attempt Resuscitation ASA Classification ASA classification: 2-Mild systemic disease Is this case an emergency?: No
[2024-01-10] MEDS ORDERED: ePHEDrine 50 MG/ML VIAL IVP PRN (14:27)
[2024-01-10] MEDS ORDERED: NALBUPHINE 10 MG/ML AMP IVP PRN (14:27)
[2024-01-10] MEDS ORDERED: NALOXONE 0.4 MG/ML VIAL IVP PRN ×2 (14:27→22:41)
[2024-01-10] MEDS ORDERED: diphenhydrAMINE INJ 50 MG/ML VIAL IVP PRN (14:27)
[2024-01-10] MEDS ORDERED: ROPIVACAINE 0.2% 200 MG/100 ML BAG EP PRN (14:27)
[2024-01-10] MEDS ORDERED: METOCLOPRAMIDE 10 MG/2 ML VIAL IVP PRN (14:27)
[2024-01-10] MEDS ORDERED: ONDANSETRON 4 MG/2 ML VIAL IVP PRN (14:27)
--- NOTE | 2024-01-10 14:36 | PHARMACY PROGRESS NOTE ---
Best Possible Medication History Admit Date and Time: 01/10/24 [id number] Home Medications Medication Instructions Recorded Confirmed Type vits 75-iron 28 mg-folic 1 pkg PO DAILY 12/03/23 01/10/24 History acid 800 mcg-omega3 440 mg oral pack (One Daily ) famotidine 20 mg tablet 20 mg PO BID #60 tabs 12/16/23 01/10/24 Rx [facility] Statement: As the person ultimately responsible for medication therapy, providers are able to order a medication from an existing home medication list in [facility] via the "Reconcile Routine" prior to Confirmation of that medication by sales support consultant. Such practice is discouraged except when the physician, in their clinical judgment, deems that a medical need exists for a medication without regard to previous use.
--- NOTE | 2024-01-10 16:35 | HISTORY & PHYSICAL EXAMINATION ---
Admit History Smoking Status: Never smoker Other Maternal History Other Maternal History: HPI: More is a 28 yo G1P at 39w4d who is admitted for management of labor. More presented with more painful contractions. She also reports leakage of fluid with each contraction. Thinks she may have had a larger gush when in the shower earlier, but it was hard to tell. Reports small bloody discharge. + FM. monitoring form, copied from record: Pre- Weight: 147 lb Height: 5 ft 1 in Pre- BMI: 27.8 Expected Delivery Route/Plan induction once Isaias gets here. Specific Issues/Plans Pre- Weight: 147 BMI: 27.57 Blood type: O + Antibody: Negative CBC: PLT 331 HCT 34.4 HGB 11.3 RUB: Immune (16) VZV: Immune HBsAg: Negative HepC: NR RPR/AB-EIA: NR HIV: NR PAP: 01/15/2023-normal ([facility]) GC/CT: Negative HSV: denies Genetic testing:[id number] Covid: vaccinated Flu: vaccinated in spring FAS: Placenta: Posterior Cord: 3VC KATHY: 17.2cm EFW: 580.3g 50gm OGCT: 95 TDAP: 10/20 Breast Pump: 10/20 RPR NR 3rd trimester PLT 276 HGB 10.2 HCT 30.5 3rd trimester RPR GBS: Negative Delivery plan: MOD: Contraception: PE: Vitals signs reviewed in Centric[facility] Gen: NAD Resp: non labored respirations Abd: gravid, non tender. EFW 3600g Ext: no LE edema Speculum exam: small amount of discharge in vault, nitrazine + SVE: 4/50/-1, no bag palpable Bedside US: cephalic presentation confirmed monitoring: FHTs: 130s bpm baseline, + accel, rare late decels, mod variability Wilson: 2-5 min FHTs: Cat 2 overall reassuring Labs: ROM+ positive, T&S and CBC reviewed A/P: More is a 28 yo at 39w4d who is admitted with: - Labor, SROM - GBS neg - Gestational anemia - Expectant management for now. We have discussed possible augmentation with pitocin if contractions space out. - Pain management per patient request Nathalie Sim MD HPI Current : Current EDU 01/13/24 Gestation 39 Weeks and 4 Days Para 0 Vital Signs Temperature 98.4 F 01/10/24 11:11 Pulse Rate 96 H 01/10/24 11:11 Respiratory Rate 14 01/10/24 11:11 Blood Pressure 117/68 01/10/24 11:11 Temperature 98.4 F 01/10/24 11:11 Pulse Rate 96 H 01/10/24 11:11 Respiratory Rate 14 01/10/24 11:11 Blood Pressure 117/68 01/10/24 11:11 NST Procedure NST Procedure: NST Procedure Start Date 01/10/24 Start Time 11:14 Stop Time 11:36 Vibroacoustic Stimulation Used No Patient States Movement Yes Meds/Allgy Home Medications Ambulatory Orders Medication Instructions Recorded Confirmed vits 75-iron 28 mg-folic 1 pkg PO DAILY 12/03/23 01/10/24 acid 800 mcg-omega3 440 mg oral pack (One Daily ) famotidine 20 mg tablet 20 mg PO BID #60 tabs 12/16/23 01/10/24 Allergies Allergies Allergy/AdvReac Type Severity Reaction Status Date / Time No Known Drug Allergies Allergy Verified 01/08/24 13:04 [facility] Medical History Medical History (Updated 01/09/24 @ 17:31 by Jered Salinas MD) Back pain Dermatitis (05/02/23) Dog bite of right wrist Surgical History Surgical History (Updated 12/03/23 @ 09:28 by Breanna Harmon LPN) S/P tendon repair right wrist dog bite Family History Family History (Updated 12/03/23 @ 09:24 by Breanna Harmon LPN) Father Seizure disorder Sister Diabetes Uncle Diabetes Grandmother Lymphoma Social History Social History (Updated 12/03/23 @ 15:10 by Deya Burton MD) Smoking Status: Never smoker Do you dip or chew tobacco?: No Do you vape?: Yes Living arrangement: At home Marital Status: Single Living Condition: Other Living Situation Details: living with MERVIN Espazra's exwife, here in [place]. Isaias is at [facility] with his 4 and 6 yo with the exwife. 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 Level: Independent Do you feel safe in your home environment?: Yes Suffered physical, verbal, emotional, or financial abuse?: No History of Abuse: No ETOH Use: None Substance Use: denies use Are you sexually active?: No Sexual Practice Notes: partner in [place] Occupation: [employer] Retired: No Service: Yes Dates of Service: gets out after delivery. that will be her 5 years. Isaias has 5 yrs left. POLST Patient has POLST: No Physical Abdominal Exam Vital Signs: Temp Pulse Resp BP 98.4 F 96 H 14 117/68 01/10/24 11:11 01/10/24 11:11 01/10/24 11:11 01/10/24 11:11 Plan for Labor Plan For Labor I expect patient to be DC'd or transferred within 96 hours.: Yes Conclusion/Plan Lab Results 01/10/24 13:21
[2024-01-10] MEDS: LACTATED RINGERS 500 ML IV ONE (17:02)
--- NOTE | 2024-01-10 17:19 | PROVIDER PROGRESS NOTE ---
Labor Progress Note Labor Progress Note Labor Progress Note/Additional Text: S: comfortable with epidural O: VS reviewed in Cent[facility] SVE: 4-5/90/0 monitoring: FHTs: 130s bpm baseline, + accel, rare late decel, mod variability [place]ley: 22-5 min Cat 2 overall reassuring A/P: 28 yo at 39w4d admitted in labor with SROM. Minimal change since last exam, discussed starting pitocin and she is in agreement. Repeat SVE in 4 hrs or sooner PRN. Nathalie Sim MD
[2024-01-10] MEDS: OXYTOCIN/SODIUM CHLORIDE 500 ML IV SCH (17:26)
[2024-01-10] MEDS ORDERED: polyethylene glycoL 3350 17 GM PACKET PO PRN (22:41)
[2024-01-10] MEDS ORDERED: SIMETHICONE CHEW 80 MG TABLET PO PRN (22:41)
[2024-01-10] MEDS ORDERED: LABETALOL 5 MG/1 ML 20 ML MDV IVP PRN (22:41)
[2024-01-10] MEDS ORDERED: oxyCODONE 5 MG TABLET PO PRN (22:41)
--- NOTE | 2024-01-10 22:41 | DELIVERY NOTE ---
Delivery Note Labor Labor: positive Augmented by oxytocin Infant Delivery Method Delivery Method: positive Spontaneous vaginal delivery Presentation Presentation: positive Vertex and USMAN - left occiput anterior Nuchal Cord Nuchal Cord: positive None Amniotic Fluid Description Amniotic Fluid Description: positive Clear Episiotomy Type Episiotomy Type: positive None Laceration Laceration: positive 2nd degree Suture Suture Type: positive Vicryl Suture Size: positive 3-0 Delivery Outcome Delivery Outcome: positive Livebirth Mcfaddin : positive Placed in direct skin contact with mother, Stimulated and Warmed Mcfaddin sex: positive Male Cord Cord: positive 3 vessels Placenta Placenta: positive Intact and Spontaneous Estimated Blood Loss Estimated Blood Loss (in cc): 200 Post Delivery Events Post Delivery Events: positive No post delivery events Delivery Comments (Free Text/Narrative) Delivery Comments (Free Text/Narrative): I was called to the bedside for patient complete and ready to start pushing. The anterior shoulder delivered easily with maternal effort and gentle downward pressure followed by the remainder of the body. The was placed on the mother's abdomen and dried and stimulated. After 60 sec the cord was clamped times two and cut and the infant was taken to the radiant warmer for further evaluation Cord blood collected. Pitocin was started. The placenta was delivered intact. Good uterine tone noted. The 2nd degree laceration was repaired with 3-0 Vicryl. Perineal hemostasis noted. was back with mother and [id number] at completion of procedure. Nathalie Sim MD
[2024-01-10] MEDS: lidocaine 1% 20 ML MDV ID PRN (22:43)
[2024-01-10] MEDS: ACETAMINOPHEN 500 MG TABLET PO PRN (23:06)
[2024-01-10] MEDS: FAMOTIDINE 20 MG TABLET PO SCH (23:06)
[2024-01-11] MEDS: IBUPROFEN 600 MG TABLET PO PRN (06:38)
--- NOTE | 2024-01-11 12:25 | PROVIDER PROGRESS NOTE ---
Subjective Prog Note Date Prog Note Date: 01/11/24 Prog Note Time: 12:18 Subjective Subjective: She reports that she is feeling well. Pain is well controlled with current medications. She is ambulating without difficulty. She is tolerating a normal diet. She is voiding without difficulty. Lochia reported as normal. She would like to stay until tomorrow AM. Current Medications Current Medications Current Medications: Current Medications Generic Name Dose Route Start Last Admin Trade Name Freq PRN Reason Stop Dose Admin Acetaminophen 1,000 mg 01/10/24 12:01 Acetaminophen 500 Mg Tablet PO Q8H PRN Mild Pain or Fever>38C(100.4F) Acetaminophen 1,000 mg 01/10/24 22:41 01/10/24 23:06 Acetaminophen 500 Mg Tablet PO 1,000 mg Q8HR PRN Administration Mild Pain or Fever>38C(100.4F) Diphenhydramine HCl 12.5 - 25 mg 01/10/24 14:27 Diphenhydramine Inj 50 Mg/Ml Vial IVP Q6HR PRN ITCHING Docusate Sodium 100 mg 01/11/24 09:00 Docusate Sodium 100 Mg Capsule PO BID SURY Ephedrine Sulfate 5 mg 01/10/24 14:27 Ephedrine 50 Mg/Ml Vial IVP Q5M PRN For SBP<100;give until SBP>100 Famotidine 20 mg 01/10/24 21:00 01/10/24 23:06 Famotidine 20 Mg Tablet PO 20 mg BID SURY Administration Fentanyl 50 mcg 01/10/24 12:01 Fentanyl 100 Mcg/2 Ml Vial IVP Q1H PRN Severe Pain (score 7-10) Hydralazine HCl 5 - 10 mg 01/10/24 12:01 Hydralazine Inj 20 Mg/Ml Vial IVP Q20M PRN SBP> or= 160 OR DBP> or= 110 Protocol Hydralazine HCl 10 mg 01/10/24 22:41 Hydralazine Inj 20 Mg/Ml Vial IVP .ONCE PRN SBP> or= 160 OR DBP> or= 110 Protocol Hydralazine HCl 5 - 10 mg 01/10/24 22:41 Hydralazine Inj 20 Mg/Ml Vial IVP Q20M PRN SBP >=160 and/or DBP >=110 Protocol Lactated Ringer's 500 mls @ 999 mls/hr 01/10/24 12:01 01/10/24 14:44 Lr IV 999 mls/hr PRN PRN Infusion Abdominal Pain Oxytocin/Sodium Chloride 500 mls @ 999 mls/hr 01/10/24 12:01 Pitocin/Sodium Chloride IV PRN PRN POST- HEMORR PREVENTION Protocol 999 MILLIUNIT/MIN Tranexamic Acid 1,000 mg in 100 mls @ 600 mls/hr 01/10/24 12:01 Tranexamic 1,000 Mg/100ml-Nacl IV Q30M PRN EBL >1200mL and within 3hr Ropivacaine 200 mg in 100 mls @ 0 mls/hr 01/10/24 14:27 Naropin 0.2% EP PRN PRN PAIN Protocol Per Protocol Oxytocin/Sodium Chloride 500 mls @ 1 mls/hr 01/10/24 18:00 01/10/24 23:00 Pitocin/Sodium Chloride IV Infused TITR SURY Titration Protocol 1 MILLIUNIT/MIN Oxytocin/Sodium Chloride 500 mls @ 999 mls/hr 01/10/24 22:41 Pitocin/Sodium Chloride IV PRN PRN POST- HEMORR PREVENTION Protocol 999 MILLIUNIT/MIN Ibuprofen 600 mg 01/10/24 22:41 01/11/24 06:38 Ibuprofen 600 Mg Tablet PO 600 mg Q6HR PRN Administration Moderate Pain (Level 4-6) Labetalol HCl 20 - 80 mg 01/10/24 12:01 Labetalol 20 Mg/4 Ml Syringe IVP Q10M PRN SBP> or= 160 OR DBP> or= 110 Protocol Labetalol HCl 20 mg 01/10/24 12:01 Labetalol 20 Mg/4 Ml Syringe IVP .ONCE PRN SBP> or= 160 OR DBP> or= 110 Protocol Labetalol HCl 20 - 40 mg 01/10/24 12:01 Labetalol 20 Mg/4 Ml Syringe IVP Q10M PRN SBP> or= 160 OR DBP> or= 110 Protocol Labetalol HCl 20 - 80 mg 01/10/24 22:41 Labetalol 5 Mg/1 Ml 20 Ml Mdv IVP Q10M PRN SBP> or= 160 OR DBP> or= 110 Protocol Labetalol HCl 20 - 40 mg 01/10/24 22:41 Labetalol 20 Mg/4 Ml Syringe IVP Q10M PRN SBP> or= 160 OR DBP> or= 110 Protocol Labetalol HCl 20 mg 01/10/24 22:41 Labetalol 20 Mg/4 Ml Syringe IVP .ONCE PRN SBP >=160 and/or DBP >=110 Protocol Lidocaine HCl 20 ml 01/10/24 12:01 01/10/24 22:43 Lidocaine 1% 20 Ml Mdv ID 01/13/24 12:02 20 ml .ONCE PRN Administration PERINEAL REPAIR Methylergonovine Maleate 0.2 mg 01/10/24 12:01 Methylergonovine 0.2 Mg/Ml Vial IM .ONCE PRN Hemorrhage Metoclopramide HCl 10 mg 01/10/24 14:27 Metoclopramide 10 Mg/2 Ml Vial IVP Q6HR PRN Nausea / Vomiting Misoprostol 600 mcg 01/10/24 12:01 Misoprostol 200 Mcg Tablet BC .ONCE PRN Hemorrhage Misoprostol 800 mcg 01/10/24 12:01 Misoprostol 200 Mcg Tablet CA .ONCE PRN Hemorrhage Nalbuphine HCl 2.5 - 5 mg 01/10/24 14:27 Nalbuphine 10 Mg/Ml Amp IVP Q4H PRN ITCHING Naloxone HCl 0.1 mg 01/10/24 14:27 Naloxone 0.4 Mg/Ml Vial IVP Q2M PRN RR<8 Naloxone HCl 0.4 mg 01/10/24 22:41 Naloxone 0.4 Mg/Ml Vial IVP .ONCE PRN Opioid Overdose Nifedipine 10 - 20 mg 01/10/24 12:01 Nifedipine 10 Mg Capsule PO Q20M PRN SBP> or= 160 OR DBP> or= 110 Protocol Nifedipine 10 - 20 mg 01/10/24 22:41 Nifedipine 10 Mg Capsule PO Q20M PRN SBP >=160 and/or DBP >=110 Protocol Ondansetron HCl 4 mg 01/10/24 14:27 Ondansetron 4 Mg/2 Ml Vial IVP Q6HR PRN Nausea / Vomiting Oxycodone HCl 5 mg 01/10/24 22:41 Oxycodone 5 Mg Tablet PO Q4HR PRN Severe Pain 6-10 Oxytocin 10 unit 01/10/24 12:01 Oxytocin 10 Unit/Ml Vial IM .ONCE PRN Step One if no IV access. Polyethylene Glycol 17 gm 01/10/24 22:41 Polyethylene Glycol 3350 17 Gm Packet PO DAILY PRN Bowel Protocol Simethicone 80 mg 01/10/24 22:41 Simethicone Chew 80 Mg Tablet PO TID PRN Gas Sodium Chloride 10 ml 01/10/24 12:01 Sodium Chloride Flush 0.9% 10 Ml Syringe IVP PRN PRN NEEDED PER PROVIDER ORDERS Sodium Chloride 10 ml 01/10/24 13:00 Sodium Chloride Flush 0.9% 10 Ml Syringe IVP Q8H SURY Terbutaline Sulfate 0.25 mg 01/10/24 12:01 Terbutaline 1 Mg/Ml Vial SUBQ .ONCE PRN Tachystole Objective Vital Signs/Intake & Output Reviewed Vital Signs: Yes Vital Signs: Vital Signs x48h Temp Pulse Resp BP Pulse Ox 01/11/24 09:14 99.0 F 95 H 16 114/70 97 01/11/24 04:51 98.2 F 76 16 113/58 L Intake & Output: Intake & Output 01/09/24 01/10/24 01/11/24 01/12/24 05:59 05:59 05:59 05:59 Intake Total 898 / 898 Output Total 1300 / 1300 600 / 600 Balance -402 / -402 -600 / -600 Weight (kg) 165 lb Objective Comments/Other: GEN: NAD Resp: non-labored respirations ABDOMEN: Soft, non tender.. Fundus firm. EXT: no LE edema. No evidence of DVT. Lab Results 01/10/24 13:21 Other Labs: Lab Results x24hrs 01/10/24 Range/Units 13:21 WBC 17.2 H (4.8-10.8) x10^3/uL RBC 3.83 L (4.20-5.40) 10^6/uL Hgb 10.3 L (12.0-16.0) g/dL Hct 31.8 L (37.0-47.0) % MCV 83.0 (81.0-99.0) fL MCH 26.9 L (27.0-31.0) pg MCHC 32.4 (32.0-36.0) g/dL RDW 13.6 (12.0-15.0) % Plt Count 299 (130-450) 10^3/uL MPV 10.3 (7.9-10.8) fL Neut # (Auto) 13.5 H (1.5-6.6) 10^3/uL Lymph # (Auto) 2.6 (1.5-3.5) 10^3/uL Denali # (Auto) 1.0 (0.0-1.0) 10^3/uL Eos # (Auto) 0.0 (0.0-0.7) 10^3/uL Baso # (Auto) 0.0 (0.0-0.1) 10^3/uL Absolute Nucleated RBC 0.00 x10^3/uL Nucleated RBC % 0.0 /100WBC Blood Type O POSITIVE Antibody Screen NEGATIVE Assessment/Plan Problem List (1) care and examination of lactating mother: Impression: Continue routine care. Anticipate discharge home tomorrow. (2) Anemia affecting in third trimester:
[2024-01-11] MEDS: DOCUSATE SODIUM 100 MG CAPSULE PO SCH (18:05)
--- NOTE | 2024-01-12 07:15 | Discharge Summary ---
Discharge Summary Admit Date: 01/10/24 Discharge Date: 01/12/24 Discharging Provider: Nathalie Sim MD HOSPITAL COURSE Hospital Course: Admission Diagnosis: - SIUP at 39w4d - Labor, SROM - GBS neg - Gestational anemia (Hgb 10.3) - H/o depression - Rh + - Rubella immune - Varicella immune Discharge Diagnosis: - Same, delivered Procedures: , repair of 2nd degree laceration, EBL 200cc Hospital Course: More is a 28 yo now who presented at 39w4d in labor with SROM, 4cm on admission. Her labor was augmented with pitocin. She had an with repair of 2nd degree laceration, EBL 200cc. Her course has been uncomplicated. Condition on Discharge: SUBJECTIVE: She feels well, has no concerns this morning and feels ready to go home. Pain is minimal and well controlled with current medications. The baby is doing well. Baby is feeding via breast feeding. She is ambulating well, tolerating normal diet, urinating without difficulty. Lochia is reported as minimal. She reports she will be moving to [place] at the first of January. Will be leaving the [employer] in February, and then starting a job at [place] thereafter. She is excited about this change. OBJECTIVE: Vital signs reviewed GENERAL: NAD CHEST: non labored respirations ABD: soft, non tender, fundus firm EXT: no lower extremity edema; No evidence of DVT LAB & IMAGING STUDIES: See below PLAN: Plan for discharge home with follow up in clinic in 1 week, OK for virtual visit if she desires. Reviewed home care instructions and medications. Patient counseled regarding signs and symptoms of infection, excessive bleeding, vaginal rest and activity restrictions. Preeclampsia precautions reviewed. Contraceptive plans to be formalized at visit, partner has had a vasectomy and will have confirmatory testing once they return to [place]. Discussed that additional support is available in our clinic if needed. ALLERGIES Allergies Allergy/AdvReac Type Severity Reaction Status Date / Time No Known Drug Allergies Allergy Verified 01/08/24 13:04 MEDICATIONS Ambulatory Orders Medication Instructions Recorded Confirmed vits 75-iron 28 mg-folic 1 pkg PO DAILY 12/03/23 01/10/24 acid 800 mcg-omega3 440 mg oral pack (One Daily ) famotidine 20 mg tablet 20 mg PO BID #60 tabs 12/16/23 01/10/24 ferrous sulfate 27 mg iron tablet 27 mg PO .q0d #30 tabs 01/12/24 LABS 01/10/24 13:21 FOLLOW UP Follow Up: 1 week at [facility]. TIME SPENT Time Spent in Discharge (Minutes): 25 Discharge Plan Discharge Patient Disposition: Home, Self Care Prescriptions: New ferrous sulfate 27 mg iron tablet 27 mg PO .q0d Qty: 30 0RF Continued One Daily 28-800-440 mg-mcg-mg combo pack 1 pkg PO DAILY famotidine 20 mg tablet 20 mg PO BID Qty: 60 2RF Rx Instructions: Can start with one pill at night for one week. If symptoms persist, increase to one pill twice a day. Print Language: Tajik Patient Instructions: Vaginal After, Childbirth Breast Care, Depression , Change Expect Parents Follow-up Care: Nathalie Sim MD [Provider Admit Priv/Credential] - Jered Salinas MD [Primary Care Provider] -
[2024-01-12 13:38] VITALS: O2SAT 98
--- NOTE | 2024-01-12 17:02 | Labor Flowsheet ---
Labor Flowsheet Datetime Report Generated by CPN: 01/12/2024 17:02 Datetime: 01/12/2024 13:25 VITAL SIGNS NBP Sys/Lisa/Mean (mmHg): 101 : 58 : 66 Pulse: 89 LaborFlag: Labor Datetime: 01/12/2024 13:24 SpO2 (%): 98 Datetime: 01/10/2024 22:05 MEDICATIONS Pitocin (milliunits): Increased to @ Medication Comments: pit bolusing per protocol Datetime: 01/10/2024 22:00 UTERINE ACTIVITY Monitor Mode: Palpation Frequency (min): 1-2 Quality: Strong Duration (sec): 40-80 Pattern: Normal: <= 5 Contractions in 10 Minutes Resting Tone (Palpate): Relaxed ASSESSMENT A Monitor Mode: External US FHR Baseline Rate : 120 Variability: Moderate 6-25 bpm Decelerations: Late; Variable Category: Category II Comments: RN continuously at bedside monitoring FHR and ctx Oxygen Method: Room Air Datetime: 01/10/2024 21:49 Actions for Decelerations: Side to Side Datetime: 01/10/2024 21:42 STAGE 2 Pushing: Coached on Pushing Pushing Position: Pushing with Contractions; Pushing Lithotomy Pushing Progress: Descent with Pushing; Pushing Effectively with Contractions Preparation for Delivery: Setup for Delivery Datetime: 01/10/2024 21:30 Contraction Comments: per pt report Datetime: 01/10/2024 21:12 Monitor Interventions for UA: [place] Adjusted Datetime: 01/10/2024 21:08 Stage 2 Comments: with squat bar for support Datetime: 01/10/2024 20:54 Patient Care Comments: Dr. Roney at bedside Datetime: 01/10/2024 20:28 I/O Interventions: [place] Discontinued Datetime: 01/10/2024 20:15 Accelerations: 15X15 Datetime: 01/10/2024 20:12 VAGINAL EXAM Dilatation (cm): 10.0 Station: 1 Exam by: Thania Daily RN Patient Position/Activity: Right Tilt Datetime: 01/10/2024 19:44 Monitor Interventions for FHR: Ultrasound Adjusted Datetime: 01/10/2024 19:27 Pitocin Checklist: No More than 1 Late Deceleration Occurred in Past 30 Minutes Datetime: 01/10/2024 19:21 Temperature (C): 37.4 MATERNAL ASSESSMENT Breath Sounds, Left: Clear and Equal Breath Sounds, Right: Clear and Equal Datetime: 01/10/2024 18:15 COMMUNICATION Communication: RN Reviewed Strip Datetime: 01/10/2024 17:11 Effacement (%): 90 Vaginal Bleeding: Normal Show Communication Comments: Pt agreeable to starting pitocin at this time. Datetime: 01/10/2024 14:20 PATIENT CARE IV/Blood Work: IV Started Datetime: 01/10/2024 14:15 Stage of : Labor Temperature Route: Oral Datetime: 01/10/2024 14:02 Epidural Procedure Other: Pump Started Datetime: 01/10/2024 13:55 Epidural Procedure: Test Dose Datetime: 01/10/2024 13:46 ANESTHESIA Anesthesia Plans: Local Datetime: 01/10/2024 13:38 Epidural Positioning: Sitting Datetime: 01/10/2024 13:33 Anesthesia Comments: epidural consent signed Datetime: 01/10/2024 13:00 Respirations: 14 PAIN Pain Scale: 9 Pain Presence: Intermittent Pain Type: Contraction Pain Location: Abdomen; Back
== END 2024-01-12 15:27 | disposition home or self-care (01) | DRG 807 ==
LOC: WFO 11:01 → FBP 11:03
PROVIDERS: ADMIT Obstetrics & Gynecology; ATTEND Obstetrics & Gynecology
DX: Z37.0 Single live birth; O76 Abnormality in fetal heart rate and rhythm complicating labor and delivery; Z3A.39 39 weeks gestation of pregnancy; O99.02 Anemia complicating childbirth; O70.1 Second degree perineal laceration during delivery